=== PATIENT | male | born 1950 | race African-American/Black ===

== ENCOUNTER 2018-02-05 11:20 | Emergency (ER) | payer MEDICARE ==
[~2018-02-05] VITALS: Ht 180.3 cm; Wt 90.7 kg
[2018-02-05] MEDS ORDERED: UNOBMED (11:24)
[2018-02-05 11:33] VITALS: BP 133/85
[2018-02-05] MEDS ORDERED: Ketorolac 60mg Inj IM ONE (12:00)
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
[2018-02-05] MEDS ORDERED: IBUPROFEN600 MG ORAL (13:11)
[2018-02-05] MEDS ORDERED: ROBAXIN-750750 MG PO (13:11)
[2018-02-05] MEDS ORDERED: ACETAMINOPHEN-1 EAC1 ORAL (13:11)
[2018-02-05] MEDS ORDERED: Methocarbamol 750mg tab ORAL ONE (13:15)
[2018-02-05 13:40] VITALS: BP 128/78
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
--- NOTE | 2018-02-06 09:16 | Diagnostic Imaging Report ---
Indication: Chest pain Technique: One view of the chest Comparison: none Findings: Inspiration is suboptimal. There is crowding of the bronchovascular markings at the lung bases. Lungs and pleural spaces are otherwise clear. The heart size is upper limits of normal Impression: No acute process
== END 2018-02-05 13:49 | disposition home or self-care (01) ==
LOC: EDBD 11:20 → EMR 11:45
DX: S06.0X9A Concussion with loss of consciousness of unspecified duration, initial encounter (principal); S01.531A Puncture wound without foreign body of lip, initial encounter; V43.52XA Car driver injured in collision with other type car in traffic accident, initial encounter; Y92.488 Other paved roadways as the place of occurrence of the external cause; M25.512 Pain in left shoulder; I10 Essential (primary) hypertension; R07.9 Chest pain, unspecified
CPT/HCPCS: 70450; 71045; 96372; 99284